=== PATIENT | male | born 1960 | race Caucasian/White ===

== ENCOUNTER 2018-08-25 11:28 | Inpatient (IN) | payer MEDICARE, MEDICAID ==
[~2018-08-25] VITALS: Ht 188 cm; Wt 90.7 kg
[2018-08-25] MEDS ORDERED: COZAAR 25 MG TA25 M1 PO (12:02)
[2018-08-25] MEDS ORDERED: METOPROLOL ER PO (12:02)
[2018-08-25 12:05] LABS: ABSOLUTE EOSINOPHILS 0.1 thou/uL (0.0-0.7); ABSOLUTE MONOCYTES 0.4 thou/uL (0.0-1.2); ABSOLUTE NEUTROPHILS 4.5 thou/uL (1.6-8.1); BASOPHILS 0.6 %; EOSINOPHILS 2.3 %; HEMATOCRIT 33.3 % (42.0-52.0); HEMOGLOBIN 11.2 gm/dL (14.0-18.0); LYMPHOCYTES 15.9 %; MCHC 33.5 g/dL (28.0-37.0); MCV 86.5 fL (80.0-100.0); MONOCYTES 6.9 %; NUCLEATED RBCS 0 /100WBC; PLATELET COUNT* 233 thou/uL (150-400); POLYS 74.3 %; RBC 3.85 mil/uL (4.50-6.00); RDW-CV 19.1 % (10.5-14.5); WBC 6.1 thou/uL (4.0-11.0)
[2018-08-25 12:10] LABS: CALCIUM 8.3 mg/dL (8.5-10.1); CREATININE 7.4 mg/dL (0.6-1.3); POTASSIUM 5.1 mmol/L (3.5-5.1)
[2018-08-25 12:21] LABS: ALBUMIN 3.5 g/dL (3.4-5.0); TOTAL BILIRUBIN 0.4 mg/dL (<0.1-1.0); TOTAL PROTEIN 7.4 g/dL (6.4-8.2)
[2018-08-25] MEDS ORDERED: PROSCAR 5MG TABL5 MG PO (13:04)
[2018-08-25] MEDS ORDERED: FLOMAX0.4 MG PO (13:04)
--- NOTE | 2018-08-25 15:39 | EKG ---
[place] [address] ELECTROCARDIOGRAM REPORT Name: WICHO SHANNON Room: [place] [address] ADM IN [facility]#: [id number] Admission: 08/25/18 Attend Phys: Jerald Villar MD Discharge: Date of : 58 Report #: [id number] THIS REPORT FOR: //name// [facility] ED Test Date: 2018-08-25 Test Time: 11:36:11 Pat Name: WICHO SHANNON Department: Room: [place] [address] Gender: M [employer] Director: : 1960 Requested By: Jerald Villar Order Number: [id number] Cristy MD: Jeff Barahona Measurements Intervals [place] Rate: 103 P: 39 TN: 165 QRS: -13 QRSD: 98 T: QT: 392 QTc: 513 Interpretive Statements Sinus tachycardia Left atrial enlargement Left ventricular hypertrophy Nonspecific T abnormalities, lateral leads Prolonged QT interval No previous ECG available for comparison Electronically Signed On 08-25-2018 15:39:13 CDT by Jeff Barahona [email or web address] <ELECTRONICALLY SIGNED> By: Jeff Barahona MD, [facility] 08/25/18 1539 [id number] Jeff Barahona MD, [facility] /EPI
--- NOTE | 2018-08-25 15:55 | NUR ---
PT GIVEN BOXED LUNCH PER REQUEST.
[2018-08-25 17:17] VITALS: BP 129/91
[2018-08-25 17:43] VITALS: BP 146/103
--- NOTE | 2018-08-25 18:48 | NUR ---
PT TO UNIT AT APPROX 1730. TELE TRACKING SR AND ALL VSS ON 2L. DENIES CP. STATES SOA IS SOMEWHAT IMPROVED SINCE COMING TO ER. EDUCATED ON SAFETY AND PLAN OF CARE. PLEASE SEE ASSESSMENT FOR ADDITIONAL INFORMATION. WILL CONT TO MONITOR
[2018-08-25 20:00] VITALS: BP 137/99
[2018-08-25 21:38] LABS: AMP/METHAMP Negative (Negative); BARBITURATES Negative (Negative); BENZODIAZEPINES Negative (Negative); COCAINE Negative (Negative); METHADONE Negative (Negative); OPIATES Negative (Negative); PCP Negative (Negative); THC Negative (Negative)
[2018-08-26] VITALS: BP 135/98
[2018-08-26 04:00] VITALS: BP 140/106
[2018-08-26 05:19] VITALS: BP 146/108
--- NOTE | 2018-08-26 06:51 | NUR ---
ASSUMED PT CARE AT 1930. NURSING ASSESSMENT COMPLETED AT START OF SHIFT. ROLL SKINNER IN PLACE, TRACING SINUS RHYTHM. VSS. PT RESTLESS AND C/O ANXIETY AT START OF SHIFT. DR. ZURITA NOTIFIED AND NEW ORDER RECEIVED FOR XANAX-SEE EMAR FOR DOCUMENTATION. AT 2139, PT C/O STILL FEELING ANXIOUS AND REQUESTING SLEEP AID. DR. ZURITA NOTIFIED AND NEW ORDER RECEIVED. AMBIEN ADMINISTERED AT 2221. DURING REASSESSMENT, PT OBSERVED TO BE ASLEEP. SECOND DOSE OF AMBIEN HELD. AT 314, PT ANGRY, HEARD CURSING, STATING HE HAS NOT SLEPT ALL NIGHT. PT REASSURED ATHT PT HAS BEEN OBSERVED SLEEPING DURING REASSESSMENT AND TOO LATE TO ADMINISTER SECOND SLEEP AID. ATTEMPTED TO PROVIDE ALTERNATIVE MEASURES SUCH DARK, QUIET ENVIRONMENT. ALSO, EDUCATED PT ON SIDE EFFECTS OF NARCOTICS AND NEED FOR FURTHER EVALUATION MY MD IN AM FOR PT'S C/O SOA. O2 SAT 97% ON RA. 2L O2 NC PROVIDED FOR COMFORT. PT REFUSED AM LAB DRAWS, EVEN AFTER EDUCATED OF IMPORTANCE. PT GIVEN XANAX AT 0519, PT DEMANDING TO GET DIALYSED "NOW". EDUCATED PT THAT SOON THE DIALYSIS NURSE ARRIVED, I COULD TALK TO NURSE TO SEE IF HE COULD BE FIRST, BUT NO GUARANTEE. PT ANGRY AND DEMANDING, LEFT AMA AT 0640 AFTER EDUCATING PATIENT ON IMPORTANCE OF RECEIVING DIALYSIS AND EVALUATION BY MD. ROLL SKINNER REMOVED, IV REMOVED. PT WALKED DOWN TO EXIT AND LEFT VIA OWN VEHICLE.
--- NOTE | 2018-08-26 14:48 | EKG ---
[place] [address] ELECTROCARDIOGRAM REPORT Name: SHIVAWICHO Morelia Room: [address] IN M.R.#: [id number] Admission: 08/25/18 Attend Phys: Jerald Villar MD Discharge: 08/26/18 Date of : 58 Report #: [id number] THIS REPORT FOR: //name// [facility] Test Date: 2018-08-26 Test Time: 05:07:38 Pat Name: WICHO SHANNON Department: Room: [address] Gender: M General Internist: [facility] : 1960 Requested By: Jerald Villar Order Number: [id number] Reading MD: Andrew Alcantara Measurements Intervals [place] Rate: 92 P: 62 [place]: 154 QRS: -13 QRSD: 99 T: -59 QT: 419 QTc: 519 Interpretive Statements Sinus rhythm Probable left atrial enlargement Left ventricular hypertrophy Borderline T abnormalities, inferior leads Prolonged QT interval Baseline wander in lead(s) V3 Compared to ECG 08/25/2018 11:36:11 Sinus tachycardia no longer present T-wave abnormality still present Electronically Signed On 08-26-2018 14:48:22 CDT by Andrew Alcantara [email or web address] <ELECTRONICALLY SIGNED> By: Andrew Alcantara MD, FACC 08/26/18 [id number] [id number] Andrew Alcantara MD, [facility] /EPI
== END 2018-08-26 06:40 | disposition left against medical advice (07) | DRG 291 ==
LOC: M.ERS 11:28 → M.TBA-ER 13:24 → M.2W 17:30
PROVIDERS: Personal Emergency Response Attendant; ADMIT Internal Medicine
DX: I13.2 Hypertensive heart and chronic kidney disease with heart failure and with stage 5 chronic kidney disease, or end stage renal disease (principal); N18.6 End stage renal disease; I50.33 Acute on chronic diastolic (congestive) heart failure; I16.0 Hypertensive urgency; E87.70 Fluid overload, unspecified; Z53.21 Procedure and treatment not carried out due to patient leaving prior to being seen by health care provider; Z90.49 Acquired absence of other specified parts of digestive tract; Z87.891 Personal history of nicotine dependence; Z86.14 Personal history of Methicillin resistant Staphylococcus aureus infection